=== PATIENT | female | born 1990 | race Two or more races ===

== ENCOUNTER 2024-11-20 18:47 | Emergency (ER) | payer BC, OTHER ==
[~2024-11-20] VITALS: Ht 165.1 cm; Wt 68.0 kg
[2024-11-20] MEDS ORDERED: PYRIDOXINE HCL 50 MG TAB PO ONE (19:15)
[2024-11-20] MEDS ORDERED: diphenhdrAMINE HCL 50 MG/1 ML VL IV ONE (19:15)
[2024-11-20] MEDS ORDERED: ACETAMINOPHEN 325 MG TAB PO ONE (19:15)
[2024-11-20] MEDS ORDERED: LACTATED RINGER'S 2,000 ML IV ONE (19:15)
[2024-11-20] MEDS ORDERED: METOCLOPRAMIDE HCL 5MG/ml INJ 2ml VIAL IV ONE (19:15)
[2024-11-20 19:26] LABS: Hematocrit 39.2 % (36.0-46.0); Hemoglobin 13.4 g/dL (12.2-16.2); Mean Corpuscular Hemoglobin 29.3 pg (28.0-32.0); Mean Corpuscular Volume 86.0 fL (80.0-100.0); Nucleated Red Blood Cells % 0.1 %
--- NOTE | 2024-11-20 19:29 | ED.PDOC ---
History of Present Illness HPI Comments 34-year-old female, with a history of hyperemesis gravidarum, presents with 3x week history of nausea, vomiting, constipation, and headache. Patient reports on being 10x weeks with her third child ([id number]). Symptoms have been intermittent and, progressively, worsening following initial onset. [place] similar with previous pregnancies and had to seek emergency room attention for treatment of symptoms. She states on taking Zofran and having no relief of vomiting symptoms after being prescribed it during an earlier emergency room visit for current symptoms at a facility in [place], [place]. Patient denies having any bloody or bilious vomitus, diarrhea, vaginal bleeding or discharge, or further associated symptoms. Time Seen by MD: 19:00 Reviewed Notes: Nurses Notes, Medications, Allergies Allergies: Coded Allergies: NO KNOWN ALLERGIES (Unverified , 11/20/24) Information Source: Patient Mode of Arrival: Ambulatory Severity: Moderate Timing: Weeks Duration: Since onset Prehospital treatment: None Review of Systems: REVIEW OF SYSTEMS: No fever, no chills, HEENT: No neck pain, no blurred vision Cardiac: No chest pain. No palpitations. Lungs: No shortness of breath, GI: Nausea, vomiting, constipation, abdominal pain Musculoskeletal: No joint pain , no back pain Skin: No rash, no wound Neuro: Headache, no dizziness, no syncope Vital Signs Vital Signs Date Time Temp Pulse Resp B/P (MAP) Pulse Ox O2 Delivery O2 Flow Rate FiO2 11/20/24 19:32 98.5 104 17 121/92 (102) 97 98.5 Physical Exam General: Awake, alert and oriented. No acute distress. Skin: Skin in warm, dry and intact without rashes or lesions. HEENT: The head is normocephalic and atraumatic. Conjunctivae are clear without exudates or hemorrhage. Sclera is non-icteric. Neck: Normal range of motion. No JVD. Cardiac: Regular rate Respiratory: No signs of respiratory distress. No Stridor. Gastrointestinal: No abdominal flank or CVA tenderness. Extremities: Upper and lower extremities are atraumatic in appearance without deformity. Neurological: The patient is awake, alert and oriented to person, place, and time with normal speech. Speech is clear. There is no facial asymmetry. Psychiatric: Appropriate mood and affect. Good judgement and insight. Past Medical History Past Medical History (Other): hyperemesis gravidarum Surgical History: Denies all surgeries UPHOLSTERY TRIMMER History: Denies all UPHOLSTERY TRIMMER Hx 3 Para 2 AB 0 Social History Smoker: Non-Smoker Alcohol: Denies ETOH Use Drugs: Denies Drug Use Lives In: Home Was a procedure done? Was a procedure done?: No Differential Dx Considerations may include: threatened , hyperemesis gravidarum, electrolyte imbalance, viral syndrome, spoiled food, dehydration, Abdominal aortic aneurysm, [place], esophageal rupture, intestinal obstruction, mesenteric ischemia, perforated viscus or solid organ rupture, CHF with hepatomegaly, pneumonia, abscess, appendicitis, biliary disease, diverticulitis, gastritis, gastroenteritis, hepatitis, hernia, inflammatory bowel disease, pancreatitis, peptic ulcer disease, urinary tract infection, ureteral colic, constipation, GERD, irritable syndrome, abdominal wall pain, nonspecific abdominal pain, herpes zoster, nephrolithiasis. [ ] PID X-Ray, Labs, Meds, VS Vital Signs Date Time Temp Pulse Resp B/P (MAP) Pulse Ox O2 Delivery O2 Flow Rate FiO2 11/20/24 19:32 98.5 104 17 121/92 (102) 97 98.5 Lab Test 11/20/24 19:14 Range/Units White Blood Count 7.4 4.4-10.8 10^3/uL Red Blood Count 4.56 4.0-5.20 10^6/uL Hemoglobin 13.4 12.2-16.2 g/dL Hematocrit 39.2 36.0-46.0 % Mean Corpuscular Volume 86.0 80.0-100.0 fL Mean Corpuscular Hemoglobin 29.3 28.0-32.0 pg Mean Corpuscular Hemoglobin Concent 34.1 32.0-36.0 g/dL Red Cell Distribution Width 14.0 11.8-14.3 % Platelet Count 217 140-450 10^3/uL Mean Platelet Volume 8.1 6.9-10.8 fL Neutrophils (%) (Auto) 69.9 37.0-80.0 % Lymphocytes (%) (Auto) 21.3 10.0-50.0 % Monocytes (%) (Auto) 7.5 0.0-12.0 % Eosinophils (%) (Auto) 0.5 0.0-7.0 % Basophils (%) (Auto) 0.8 0.0-2.0 % Neutrophils # (Auto) 5.2 1.6-8.6 10 ^3/uL Lymphocytes # (Auto) 1.6 0.4-5.4 10 ^3/uL Monocytes # (Auto) 0.6 0-1.3 10 ^3/uL Eosinophils # (Auto) 0 0-0.8 10 ^3/uL Basophils # (Auto) 0.1 0-0.2 10 ^3/uL Nucleated Red Blood Cells 0.1 % Urine Color Yellow Yellow Urine Clarity Turbid H Clear Urine pH 6.0 5.0-9.0 Urine Specific [place] 1.029 1.001-1.035 Urine Protein 1+ H Negative Urine Ketones 1+ H Negative Urine Blood Trace H Negative /uL Urine Nitrite Negative Negative Urine Bilirubin Negative Negative Urine Urobilinogen 3 H Negative mg/dL Urine Leukocyte Esterase Negative Negative /uL Urine RBC <1 0 - 4 /hpf Urine Microscopic WBC 6 H 0-5 /HPF Urine Squamous Epithelial Cells Few <5 /hpf Urine Bacteria None seen None Seen /hpf Urine Mucus Many None Seen Urine Glucose Normal Normal mg/dL Sodium Level 140 136-145 mmol/L Potassium Level 3.5 3.5-5.1 mmol/L Chloride Level 105 98-107 mmol/L Carbon Dioxide Level 24 20-31 mmol/L Anion Gap 11 5-15 Blood Urea Nitrogen 8 L 9-23 mg/dL Creatinine 0.67 0.550-1.02 mg/dL Glomerular Filtration Rate Calc 117 >90 mL/min BUN/Creatinine Ratio 11.9 10.0-20.0 Serum Glucose 100 74-106 mg/dL Calcium Level 9.8 8.7-10.4 mg/dL Thyroid Stimulating Hormone (TSH) 0.01 L 0.55-4.78 uIU/mL Free Thyroxine (T4) Calculated 1.63 0.89-1.76 ng/dL Beta HCG, Quantitative 02162.3 H 1.5-4.2 mIU/mL Time of 1ST Reevaluation: 19:30 Reevaluation 1ST: Unchanged Patient Education/Counseling: Treatment, Need For Follow Up Family Education/Counseling: No Family Present SEPSIS Sepsis Screen Physician Orders Po Trial (11/20/24 ) Vital Signs Date Time Temp Pulse Resp B/P (MAP) Pulse Ox O2 Delivery O2 Flow Rate FiO2 11/20/24 19:32 98.5 104 17 121/92 (102) 97 98.5 Laboratory Tests Test 11/20/24 19:14 White Blood Count 7.4 10^3/uL (4.4-10.8) Departure 1 Departure Time of Disposition: 20:17 Impression: Primary Impression: Low TSH level Additional Impressions: Nausea/vomiting in Eloped from emergency department Disposition: 07 LEFT AWOL/ELOPED Condition: Other Additional Instructions: ED DISCHARGE INSTRUCTIONS INSTRUCTIONS: PLEASE READ ALL INSTRUCTIONS PROVIDED IN THIS PACKET CAREFULLY. ALTHOUGH YOU HAVE BEEN DISCHARGED FROM THE EMERGENCY DEPARTMENT, THIS DOES NOT MEAN THAT YOU HAVE A "CLEAN BILL OF HEALTH". []NO DEFINITIVE DIAGNOSIS FOR YOUR SYMPTOMS HAS BEEN MADE TODAY. IT IS POSSIBLE THAT YOU ARE IN THE PROCESS OF DEVELOPING A SERIOUS ILLNESS. THIS IS WHY YOU MUST RETURN TO THE ED WITHOUT FAIL IF ANY NEW OR WORSENING SYMPTOMS (ESPECIALLY IF YOUR SYMPTOMS INCLUDE CHEST PAIN, TROUBLE BREATHING, ABDOMINAL PAIN, FEVER, HEADACHE, CONFUSION, TROUBLE SEEING, OR TROUBLE WALKING) IT IS ALSO VERY IMPORTANT THAT YOU SEE A PRIMARY CARE DOCTOR WITHIN THE NEXT 3-5 DAYS TO FOLLOW UP. YOUR THYROID HORMONES WERE ABNORMAL TODAY. IT IS VERY IMPORTANT THAT YOU FOLLOW UP WITH THE PRIMARY CARE PROVIDER FOR A REFERRAL TO SEE AN [employer] SOON POSSIBLE. IF YOU ARE UNABLE TO GET AN APPOINTMENT, RETURN TO THE ED FOR RE-EVALUATION. Nausea and Vomiting in : Care Instructions Overview Nausea and vomiting (often called morning sickness) are common in . They are likely caused by hormones and happen most often in the first several months. Some people get very sick and are not able to keep down food and fluids. This extreme morning sickness is called hyperemesis gravidarum. It can lead to a dangerous loss of fluids in the body. It also can keep you from gaining weight and getting proper nutrition during your . There are some things you can do to take care of yourself and that may help your symptoms. Medicine may help if you have severe nausea and vomiting. Follow-up care is a zheng part of your treatment and safety. Be sure to make and go to all appointments, and call your doctor if you are having problems. It's also a good idea to know your test results and keep a list of the medicines you take. How can you care for yourself at home? Take your medicines exactly as prescribed. Call your doctor if you think you are having a problem with your medicine. Drink plenty of fluids to prevent dehydration. Choose water and other clear liquids until you feel better. Try using an electrolyte replacement drink (such as Pedialyte or Rehydralyte) to replace fluids and minerals. For nausea when you wake up, eat a small snack such as crackers before rising. Wait a few minutes, then slowly get up. Keep food in your stomach, but not too much at once. An empty stomach can make nausea worse. Eat several small meals every day instead of three large meals. Ask your doctor about [id number] products such as vitamin B6 or doxylamine to relieve your symptoms. Your doctor can tell you the doses that are safe for you. Try to avoid smells and foods that make you feel sick to your stomach. High-fat or greasy foods, milk, and coffee may make nausea worse. Some foods that may be easier to tolerate include cold, spicy, sour, and salty foods. Get lots of rest. Stress and fatigue can make your morning sickness worse. You may want to try P6 acupressure bands. They put pressure on an acupressure point in the wrist. Some people feel better using the bands. Try foods and drinks made with fidel, such as fidel tea, fidel nadya, and crystallized fidel. Fidel may help with nausea. When should you call for help? Call 911 anytime you think you may need emergency care. For example, call if: You passed out (lost consciousness). Call your doctor now or seek immediate medical care if: You are too sick to your stomach to drink fluids. You have symptoms of dehydration, such as: Dry eyes and a dry mouth. Passing only a little urine. Feeling thirstier than usual. You are not able to keep down your medicine. You have new symptoms such as diarrhea, fever, or belly pain. Watch closely for changes in your health, and be sure to contact your doctor if: You lose weight. Your symptoms get worse or you do not get better as expected. Credits for Extreme Nausea and Vomiting in : Care Instructions Current as of: September 14, 2023 Author: [employer] Staff Clinical Review Board All [employer] education is reviewed by a team that includes physicians, nurses, advanced practitioners, registered dieticians, and other healthcare professionals. Comments Patient eloped from the emergency department prior to receiving treatment and reviewing test results. Critical Care Note Critical Care Time?: No Stability Stability form required: No Heart Score Heart Score: Heart Score Response (Comments) Value History N/A 0 EKG N/A 0 Age N/A 0 Risk Factors N/A 0 Troponin N/A 0 Total 0 I personally scribed for HITESH GONZALEZ MD ([email or web address]) on 11/20/24 at 19:29. Elec tronically submitted by Erasmo Walters ([email or web address]). HITESH GONZALEZ MD Nov 20, 2024 19:29
[2024-11-20 19:32] VITALS: BP 121/92; PULSE 104; RESP 17; TEMP 98.5; O2SAT 97
[2024-11-20 19:35] LABS: Chloride 105 mmol/L (98-107); Sodium 140 mmol/L (136-145)
[2024-11-20 19:36] LABS: Anion Gap 11 (5-15); Calcium 9.8 mg/dL (8.7-10.4); Carbon Dioxide 24 mmol/L (20-31); Potassium 3.5 mmol/L (3.5-5.1)
[2024-11-20 19:41] LABS: BUN/Creatinine Ratio 11.9 (10.0-20.0); Glucose 100 mg/dL (74-106)
[2024-11-20 19:43] LABS: Blood Urea Nitrogen 8 mg/dL (9-23)
[2024-11-20 19:47] LABS: Thyroid Stimulating Hormone 0.01 uIU/mL (0.55-4.78)
[2024-11-20 19:55] LABS: Beta HCG, Quantitative 85069.3 mIU/mL (1.5-4.2)
[2024-11-20 20:10] LABS: Urine Protein, UAD 1+ (Negative)
== END 2024-11-21 00:54 | disposition left against medical advice (07) ==
LOC: ER 18:47
DX: Z34.91 Encounter for supervision of normal pregnancy, unspecified, first trimester (principal); Z3A.10 10 weeks gestation of pregnancy; R94.6 Abnormal results of thyroid function studies
CPT/HCPCS: 36415; 80048; 81001; 84439; 84443; 84702; 85025